=== PATIENT | female | born 1980 | race Two or more races ===

== ENCOUNTER → 2024-05-23 | Outpatient (CLI) | payer MEDICAID, SELFPAY ==
--- NOTE | 2024-05-23 14:00 | XR_ITS ---
Examination: Breast ultrasound, unilateral, right Date and time of exam: May 23, 2024 1434 hours INDICATIONS: Mammogram 11/04/2023 focal asymmetry 11 to 12:00 position right breast anterior depth Technique: Real-time andersen scale ultrasonographic imaging performed right breast including all 4 quadrants as well as nipple retroareolar and axillary region. Findings: 12:00 cyst 8 x 19 mm 12:00 cyst 5 x 6 mm 10:00 cyst 6 x 4 mm No solid nodules IMPRESSION: BI-RADS Category 2: Benign findings
--- NOTE | 2024-05-23 14:30 | XR_ITS ---
Examination: Diagnostic digital mammography, unilateral, right Computer aided detection 3-D breast Tomosynthesis, unilateral Date and time of exam: May 23, 2024 1457 hours INDICATIONS: Mammogram 11/04/2023 focal asymmetry 11 to 12:00 position right breast anterior depth Technique: Nonmagnified MLO, CC views of the right breast have been obtained, reconstructed from 3-D Tomosynthesis images. R2 computer aided detection program utilized for evaluation of suspicious masses and/or abnormal calcifications. 3-D Tomosynthesis images obtained. Findings: The breast is heterogeneously dense, which may obscure small masses Focal asymmetry remains upper right breast on the spot compression MLO view Impression: BI-RADS category 3: Probably benign findings One additional 6 month right mammogram follow-up is needed
== END | disposition home or self-care (01) ==
PROVIDERS: Referring Provider Physician Assistant; Visit Provider Physician Assistant
DX: R92.331 Mammographic heterogeneous density, right breast (principal); N60.01 Solitary cyst of right breast
CPT/HCPCS: 76641; 77061; 77065; G0279

== ENCOUNTER 2024-06-07 13:08 | Outpatient (AMB) | payer MEDICAID, SELFPAY ==
[2024-06-07 13:27] VITALS: BP 101/67; PULSE 68; RESP 19; TEMP 36.7; O2SAT 98; BMI 30.1
--- NOTE | 2024-06-07 13:27 | ORTHONT_ITS ---
Vital signs 06/07/24 13:27 Height 1.52 m Height Method Measured Weight 69.626 kg Weight Measurement Method Standing Scale BMI 30.1 BP 101/67 Blood Pressure Source Automatic Cuff Blood Pressure Location Left Upper Arm Position Sitting Respiration 19 Pulse 68 Pulse Source Monitor Temp 98.1 F Temp Source Temporal Artery Scan Pulse Oximetry (%) 98 Oxygen Delivery Method Room Air Med/Allergies Allergies & Medications Allergies No Known Allergies Allergy (Verified 06/07/24 13:28) Medication Reconciliation ergocalciferol (vitamin D2) 1,250 mcg (50,000 unit) capsule (Vitamin D2) 1,250 mcg PO QWEEK 06/07/24 [History Confirmed 06/07/24] naproxen 375 mg tablet 375 mg PO BID PRN 06/07/24 [History Confirmed 06/07/24] Exam Exam Patient is in no acute distress and is cooperative with the examination today. Breathing is nonlabored. In no respiratory distress. Patient has no paraspinal tenderness. Spinal deformity cannot be appreciated. The gait of the patient is nonantalgic Bilateral extremities were evaluated and demonstrates sensation intact to light touch. Palpable pedal pulses are present. No significant edema is present. Bilateral knees were examined and the patient has full strength and range of motion.. The left hip was examined. Patient was able to flex to 90 degrees, adduct to 30 degrees, abduct to 40 degrees, internally rotate to 20 degrees, and externally rotate to 20 degrees. Patient has a negative logroll. Stinchfield is negative. The patient is nontender diffusely to touch. The right hip was examined. Patient was able to flex to 90 degrees, adduct to 30 degrees, abduct to 40 degrees, internally rotate to 15 degrees, and externally rotate to 20 degrees. Patient has a positive logroll X-rays of the right hip are reviewed. This demonstrates complete obliteration of the superior joint space with sclerosis of the femoral head consistent with avascular porosis Assessment and Plan Problem List (1) Avascular necrosis of bone of right hip: Status: Acute Plan: Patient is a 43-year-old female with excruciating right hip pain. She has significant degenerative changes on x-ray and I do think she has avascular necrosis. We will get an MRI to confirm the diagnosis. We discussed different treatment options and she has tried ibuprofen and naproxen. We will likely discuss surgery as a possible treatment choice. 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 Level 3 ([id number]) [place] Intake Visit Data Collection New Patient or Established: Established Patient (seen at [facility] within 3 years) Reason for Visit:: RIGHT HIP PAIN Development Writer Required: Yes Development Writer's name/title: CARLOZ SCRUGGS MA Do You Feel Safe at Home: Yes Questionairres Past Medical History Past Medical History Have you ever been diagnosed with any of the following: Neurological Problems Seizures: No Cardiology Problems Congestive Heart Failure: No Respiratory Problems Chronic Obstructive Pulmonary Disease (COPD): No Genital/Urinary Problems Renal Disease: No Reproductive Problems Endometriosis: Yes Pelvic Inflammatory Disease: Yes Previous Pregnancies: Yes Endocrine Problems Diabetes Mellitus Type 1: No Diabetes Mellitus Type 2: No Other Problems Blood Transfusions: No Blood Transfusion Reaction: No Anesthesia Reactions: No MRSA: No VRSA: No Chicken Pox: Yes Measles: Yes Clostridium Difficile: Yes Cancer: No Subjective Visit Visit for: new patient and hip Immunization / Flu Flu Vaccine in the Last 12 Months: Yes Flu Vaccine Exclusion Criteria: Already Received History of Present Illness Chief complaint: RIGHT HIP PAIN Patient is a pleasant 43-year-old female with 12 years of right hip pain. We worsened in the last several years. She reports it is very difficult to put on socks and shoes and the pain is affecting her quality life. She denies any history of alcohol or steroid use in the past. She is very healthy. Personal History Red flag PMH: none BMI Counceling provided: Yes Pain Pain level (0-10): 8 Pain duration: INTERMITTENT Ambulatory data Ambulatory device: none Review of Systems Review of Systems: All systems negative unless otherwise noted in HPI.
--- NOTE | 2024-06-07 13:35 | XR_ITS ---
Examination: Bilateral knees 2 views Technique: Bilateral AP knees 2 views Bilateral knee left lateral knee 2 views Bilateral axial knees single view Technique: Bilateral AP knees standing single view, bilateral PA knees standing flexion Standing right lateral knee left lateral knee 2 views Bilateral axial knees single view total 5 views Exam date and time: June 07, 2024 1350 hrs. Indications: Bilateral knee pain beginning 2 years ago Findings: Mild to moderate narrowing medial joint spaces No fractures or dislocations Mild to moderate narrowing patellofemoral joints Impression: Mild to moderate narrowing medial and patellofemoral joints
--- NOTE | 2024-06-07 13:35 | XR_ITS ---
Examination:Right hip AP, lateral, AP pelvis 3 views Technique: Hip AP lateral, AP pelvis, 3 views Exam date and time:June 07, 2024 1350 hrs. Indications: Right hip pain beginning 2 years ago Findings: Advanced right hip osteoarthritis Focal sclerotic areas and radiolucencies in the right femoral head consistent with avascular necrosis Left hip bones of the pelvis intact Impression: Advanced right hip osteoarthritis Avascular necrosis right femoral head.
== END 2024-06-07 13:38 | disposition home or self-care (01) ==
LOC: HODSRG 13:08
PROVIDERS: PCP Physician Assistant; Referring Provider Physician Assistant; Supervising Provider Orthopaedic Surgery Adult Reconstructive Orthopaedic Surgery; Visit Provider Orthopaedic Surgery Adult Reconstructive Orthopaedic Surgery
DX: M87.88 Other osteonecrosis, other site (principal); M25.551 Pain in right hip; M16.11 Unilateral primary osteoarthritis, right hip; M25.862 Other specified joint disorders, left knee; M25.861 Other specified joint disorders, right knee
CPT/HCPCS: 73502; 73564; 99203; G0463

== ENCOUNTER 2024-06-23 13:58 | Outpatient (AMB) | payer MEDICAID, SELFPAY ==
--- NOTE | 2024-06-23 14:16 | ORTHONT_ITS ---
Vital signs 06/23/24 14:26 Height 1.52 m Height Method Stated Weight 68.577 kg Weight Measurement Method Standing Scale BMI 29.7 BP 98/64 Blood Pressure Source Automatic Cuff Blood Pressure Location Left Upper Arm Position Sitting Respiration 18 Pulse 63 Pulse Source Monitor Temp 97.6 F Temp Source Temporal Artery Scan Pulse Oximetry (%) 98 Oxygen Delivery Method Room Air Med/Allergies Allergies & Medications Allergies No Known Allergies Allergy (Verified 06/23/24 14:27) Medication Reconciliation ergocalciferol (vitamin D2) 1,250 mcg (50,000 unit) capsule (Vitamin D2) 1,250 mcg PO QWEEK 06/07/24 [History Confirmed 06/23/24] naproxen 375 mg tablet 375 mg PO BID PRN 06/07/24 [History Confirmed 06/23/24] Exam Exam Patient is in no acute distress and is cooperative with the examination today. Breathing is nonlabored. In no respiratory distress. Patient has no paraspinal tenderness. Spinal deformity cannot be appreciated. The gait of the patient is nonantalgic Bilateral extremities were evaluated and demonstrates sensation intact to light touch. Palpable pedal pulses are present. No significant edema is present. Bilateral knees were examined and the patient has full strength and range of motion.. The left hip was examined. Patient was able to flex to 90 degrees, adduct to 30 degrees, abduct to 40 degrees, internally rotate to 20 degrees, and externally rotate to 20 degrees. Patient has a negative logroll. Stinchfield is negative. The patient is nontender diffusely to touch. The right hip was examined. Patient was able to flex to 90 degrees, adduct to 30 degrees, abduct to 40 degrees, internally rotate to 15 degrees, and externally rotate to 20 degrees. Patient has a positive logroll X-rays of the right hip are reviewed. This demonstrates complete obliteration of the superior joint space with sclerosis of the femoral head consistent with avascular necrosis. Assessment and Plan Problem List (1) Avascular necrosis of bone of right hip: Status: Acute Plan: Patient is a 43-year-old female with excruciating right hip pain and severe avascular necrosis. She has significant degenerative changes on x-ray as well. She has failed conservative treatment and has actually tried significant things already including NSAIDs. We did discuss that she is on the younger side for a total hip replacement and that there is a risk for revision in the future. The nature and purpose of the total hip replacement, alternative method(s) of treatment, the material risks involved, and the possibility of complications were fully explained to the patient. The patient does NOT have any of the following contraindications to [place]: - Active infection of the hip joint, OR - Active systemic bacteremia, OR - Active skin infection or open wound at surgical site, OR - Neuropathic arthritis, OR - Severe, rapidly progressive neurological disease, OR - Severe medical condition that makes risks of the surgery outweigh the potential benefit The patient was told the most common risks and complications associated with a total hip replacement include, but are not limited to: blood clots in the leg, fatal pulmonary embolism, dislocation of the prosthesis, intraoperative and postoperative fractures of the femur or acetabulum, infection, failure of the prosthesis or grafting materials, complications from anesthesia, reactions to blood transfusions, postoperative leg length inequality, instability of the hip replacement, nerve damage or injury, vascular injury, delayed wound healing, infection, other injury or even . In addition, there are risks associated with anesthesia given during this operation. Also, the patient was told that after undergoing a total hip replacement there may still be persistent pain or disability. The patient was informed that the success of this operation in part depends upon the mechanical devices which are going to be implanted and that these devices can fail or malfunction, and may need to be repaired or replaced and there are no guarantees as to the longevity of this device or its parts and that it or its parts could fail prematurely. The patient was also notified that during the course of surgery, there may be a need to use bone graft from donors, and that any bone graft used will be carefully screened for communicable diseases, including AIDS, hepatitis, Demetrio-Creutzfeldt, or other diseases, but despite the screening procedures, there is a small chance that they could contract one of these diseases. Finally, the patient was asked to follow completely and fully with all advice and recommended treatments, and that recovery and ultimate outcome are affected by their compliance with recommended treatment. We discussed the risks, benefits and treatment alternatives, and the patient is interested in proceeding with surgery. We will try to set this up as expeditiously as possible. Office Procedures GNS Level of Care Nursing/Assessment Patient Status: Established Patient Nursing Assessment/Reassesment: Medication Reconciliation, Update PMH in EMR and Vital Signs Coordination of Care: Complex Care and Chronic Disease 1-5, Education Complex Pt/Fam, Consent,records obtained, informed consent, Results/Orders obtained and Staff clarify orders Special Needs: Language special needs Established Patient Charge Established Patient Point Assignment: 95 Established Patient Point Charge: EP Level 3 (80-115) MA Intake Visit Data Collection New Patient or Established: Established Patient (seen at [facility] within 3 years) Reason for Visit:: RIGHT HIP PAIN REQ SX Centrifugal Operator Required: Yes Centrifugal Operator's name/title: CARLOZ SCRUGGS MA PCP or OBGYN visit in last 3 months: Yes Hx Now: No Do You Feel Safe at Home: Yes Authorities Contacted: N/A Questionairres Past Medical History Past Medical History Have you ever been diagnosed with any of the following: Neurological Problems Seizures: No Cardiology Problems Congestive Heart Failure: No Respiratory Problems Chronic Obstructive Pulmonary Disease (COPD): No Smoking: No Smoking Exposure: No Genital/Urinary Problems Renal Disease: No Reproductive Problems Endometriosis: Yes Pelvic Inflammatory Disease: Yes Previous Pregnancies: Yes Endocrine Problems Diabetes Mellitus Type 1: No Diabetes Mellitus Type 2: No Other Problems Blood Transfusions: No Blood Transfusion Reaction: No Anesthesia Reactions: No MRSA: No VRSA: No Chicken Pox: Yes Measles: Yes Clostridium Difficile: Yes Cancer: No Subjective Visit Visit for: follow up visit, hip and x-rays Immunization / Flu Flu Vaccine in the Last 12 Months: Yes Flu Vaccine Exclusion Criteria: Already Received History of Present Illness Chief complaint: RIGHT HIP PAIN Patient is a pleasant 43-year-old female with 12 years of right hip pain. We worsened in the last several years. She reports it is very difficult to put on socks and shoes and the pain is affecting her quality life. She denies any history of alcohol or steroid use in the past. She is very healthy. She has not tried antiinflammatories. Personal History Red flag PMH: none BMI Counceling provided: Yes Pain Pain level (0-10): 8 Pain duration: CONSTANT Pain location: groin, inside (medial), outside (lateral) and anterior Pain quality: sharp, dull and aching Pain timing: night, increases with activity and stairs Associated signs & symptoms: numbness, weakness and stiffness Ambulatory data Ambulatory device: none Treatments Improvement with previous injections: No Improvement with PT: No Improvement with NSAIDS: no Review of Systems Review of Systems: All systems negative unless otherwise noted in HPI.
[2024-06-23 14:26] VITALS: BP 98/64; PULSE 63; RESP 18; TEMP 36.4; O2SAT 98; BMI 29.7
== END 2024-06-23 14:29 | disposition home or self-care (01) ==
LOC: HODSRG 13:58
PROVIDERS: PCP Physician Assistant; Referring Provider Physician Assistant; Supervising Provider Orthopaedic Surgery Adult Reconstructive Orthopaedic Surgery; Visit Provider Orthopaedic Surgery Adult Reconstructive Orthopaedic Surgery
DX: M87.88 Other osteonecrosis, other site (principal); M25.551 Pain in right hip
CPT/HCPCS: 99213; G0463

== ENCOUNTER 2024-07-21 09:32 | Outpatient (AMB) | payer MEDICAID, SELFPAY ==
--- NOTE | 2024-07-21 10:17 | PD.ORTHCLVIS ---
Med/Allergies Allergies & Medications Allergies No Known Allergies Allergy (Verified 06/23/24 14:27) Exam Exam Patient is in no acute distress and is cooperative with the examination today. Breathing is nonlabored. In no respiratory distress. Patient has no paraspinal tenderness. Spinal deformity cannot be appreciated. The gait of the patient is nonantalgic Bilateral extremities were evaluated and demonstrates sensation intact to light touch. Palpable pedal pulses are present. No significant edema is present. Bilateral knees were examined and the patient has full strength and range of motion.. The left hip was examined. Patient was able to flex to 90 degrees, adduct to 30 degrees, abduct to 40 degrees, internally rotate to 20 degrees, and externally rotate to 20 degrees. Patient has a negative logroll. Stinchfield is negative. The patient is nontender diffusely to touch. The right hip was examined. Patient was able to flex to 90 degrees, adduct to 30 degrees, abduct to 40 degrees, internally rotate to 15 degrees, and externally rotate to 20 degrees. Patient has a positive logroll X-rays of the right hip are reviewed. This demonstrates complete obliteration of the superior joint space with sclerosis of the femoral head consistent with avascular necrosis. Assessment and Plan Problem List (1) Avascular necrosis of bone of right hip: Status: Acute Plan: Patient is a 43-year-old female with excruciating right hip pain and severe avascular necrosis. She has significant degenerative changes on x-ray as well. She has failed conservative treatment and has actually tried significant things already including NSAIDs. We did discuss that she is on the younger side for a total hip replacement and that there is a risk for revision in the future. The nature and purpose of the total hip replacement, alternative method(s) of treatment, the material risks involved, and the possibility of complications were fully explained to the patient. The patient does NOT have any of the following contraindications to [place]: - Active infection of the hip joint, OR - Active systemic bacteremia, OR - Active skin infection or open wound at surgical site, OR - Neuropathic arthritis, OR - Severe, rapidly progressive neurological disease, OR - Severe medical condition that makes risks of the surgery outweigh the potential benefit The patient was told the most common risks and complications associated with a total hip replacement include, but are not limited to: blood clots in the leg, fatal pulmonary embolism, dislocation of the prosthesis, intraoperative and postoperative fractures of the femur or acetabulum, infection, failure of the prosthesis or grafting materials, complications from anesthesia, reactions to blood transfusions, postoperative leg length inequality, instability of the hip replacement, nerve damage or injury, vascular injury, delayed wound healing, infection, other injury or even . In addition, there are risks associated with anesthesia given during this operation. Also, the patient was told that after undergoing a total hip replacement there may still be persistent pain or disability. The patient was informed that the success of this operation in part depends upon the mechanical devices which are going to be implanted and that these devices can fail or malfunction, and may need to be repaired or replaced and there are no guarantees as to the longevity of this device or its parts and that it or its parts could fail prematurely. The patient was also notified that during the course of surgery, there may be a need to use bone graft from donors, and that any bone graft used will be carefully screened for communicable diseases, including AIDS, hepatitis, Demetrio-Creutzfeldt, or other diseases, but despite the screening procedures, there is a small chance that they could contract one of these diseases. Finally, the patient was asked to follow completely and fully with all advice and recommended treatments, and that recovery and ultimate outcome are affected by their compliance with recommended treatment. We discussed the risks, benefits and treatment alternatives, and the patient is interested in proceeding with surgery. We will try to set this up as expeditiously as possible. Questionairres Past Medical History Past Medical History Have you ever been diagnosed with any of the following: Neurological Problems Seizures: No Cardiology Problems Congestive Heart Failure: No Respiratory Problems Chronic Obstructive Pulmonary Disease (COPD): No Smoking: No Smoking Exposure: No Genital/Urinary Problems Renal Disease: No Reproductive Problems Endometriosis: Yes Pelvic Inflammatory Disease: Yes Previous Pregnancies: Yes Endocrine Problems Diabetes Mellitus Type 1: No Diabetes Mellitus Type 2: No Other Problems Blood Transfusions: No Blood Transfusion Reaction: No Anesthesia Reactions: No MRSA: No VRSA: No Chicken Pox: Yes Measles: Yes Clostridium Difficile: Yes Cancer: No Subjective Visit Visit for: follow up visit, hip and x-rays Immunization / Flu Flu Vaccine in the Last 12 Months: Yes Flu Vaccine Exclusion Criteria: Already Received History of Present Illness Chief complaint: RIGHT HIP PAIN Patient is a pleasant 43-year-old female with 12 years of right hip pain. We worsened in the last several years. She reports it is very difficult to put on socks and shoes and the pain is affecting her quality life. She denies any history of alcohol or steroid use in the past. She is very healthy. She has not tried antiinflammatories. Personal History Red flag PMH: none BMI Counceling provided: Yes Pain Pain level (0-10): 8 Pain duration: CONSTANT Pain location: groin, inside (medial), outside (lateral) and anterior Pain quality: sharp, dull and aching Pain timing: night, increases with activity and stairs Associated signs & symptoms: numbness, weakness and stiffness Ambulatory data Ambulatory device: none Treatments Improvement with previous injections: No Improvement with PT: No Improvement with NSAIDS: no Review of Systems Review of Systems: All systems negative unless otherwise noted in HPI.
== END 2024-07-21 10:16 | disposition home or self-care (01) ==
LOC: HODSRG 09:32
PROVIDERS: PCP Physician Assistant; Referring Provider Physician Assistant; Supervising Provider Orthopaedic Surgery Adult Reconstructive Orthopaedic Surgery; Visit Provider Orthopaedic Surgery Adult Reconstructive Orthopaedic Surgery
DX: M87.88 Other osteonecrosis, other site (principal); M25.551 Pain in right hip
CPT/HCPCS: 99213; G0463

== ENCOUNTER → 2024-07-28 | Outpatient (CLI) | payer MEDICAID, SELFPAY ==
--- NOTE | 2024-07-28 07:30 | XR_ITS ---
Examination: MRI right hip without intravenous contrast. Date and time of exam: July 28, 2024 0803 hours Comparison January 06, 2024 Technique: Multiple MRI images of the right hip have been obtained T1 weighted coronal sections, TR 500, TE 12 Proton density coronal fat saturated images, TR 3000, TE 71 T2-weighted coronal images, 5850, TE 104 T1-weighted axial images, TR 521, TE 12 T2-weighted axial fat suppressed images, TR 5730, TE 103. Findings: Advanced right hip osteoarthritis, narrowing of the joint and subarticular cyst formation Extensive avascular necrosis right femoral head, occupying more than 50% of the articulating surface Bones of the pelvis intact 25 mm left ovarian cyst No free fluid in the pelvis IMPRESSION: Advanced right hip osteoarthritis Significant avascular necrosis right femoral head Recommend pelvic sonography to assess 25 mm left ovarian cyst
== END | disposition home or self-care (01) ==
LOC: SMRI 07:13
PROVIDERS: PCP Physician Assistant; Referring Provider Orthopaedic Surgery Adult Reconstructive Orthopaedic Surgery; Visit Provider Orthopaedic Surgery Adult Reconstructive Orthopaedic Surgery
DX: M16.11 Unilateral primary osteoarthritis, right hip (principal); M87.851 Other osteonecrosis, right femur; N83.202 Unspecified ovarian cyst, left side
CPT/HCPCS: 73721

== ENCOUNTER → 2024-08-10 | Outpatient (CLI) | payer MEDICAID, SELFPAY ==
--- NOTE | 2024-08-10 17:00 | XR_ITS ---
Examination: CT bilateral lower extremities, without contrast. 2-D sagittal reconstructions. 2-D coronal reconstructions. 3-D reconstructions. Date and time of exam:August 10, 2024, 1701 hours INDICATIONS: Right hip pain 10 years, diagnosis aseptic necrosis right femur CTDI: vol (mGy):10.7 DLP: (mGycm):578 Technique: Multiple 1.25 mm axial sections of the bilateral lower extremities without intravenous contrast have been obtained. 2-D sagittal and coronal reconstructions have been obtained. 3-D reconstructions have been obtained. Low dose protocols were performed. One or more of the following dose reduction techniques were used; automated exposure control, adjustment of the mA and/or KV according to patient size, use of iterative reconstruction technique. Findings: Advanced right hip osteoarthritis Sclerosis and radiolucencies in the right femoral head [id number]-[id number] narrowing left hip joint Moderate narrowing medial joint space right knee [id number] narrowing medial joint space left knee IMPRESSION: Advanced right hip osteoarthritis Avascular necrosis right femoral head occupying more than 50% of the articulating surface of the femoral head, axial image 132
== END | disposition home or self-care (01) ==
LOC: CCTX 16:47
PROVIDERS: PCP Physician Assistant; Referring Provider Orthopaedic Surgery Adult Reconstructive Orthopaedic Surgery; Visit Provider Orthopaedic Surgery Adult Reconstructive Orthopaedic Surgery
DX: M16.11 Unilateral primary osteoarthritis, right hip (principal); M87.051 Idiopathic aseptic necrosis of right femur
CPT/HCPCS: 72192; 73700

== ENCOUNTER 2024-08-17 05:30 | Day surgery (SDC) | payer MEDICAID, SELFPAY ==
[2024-08-15 08:31] VITALS: BMI 30.5
[2024-08-15 10:51] LABS: Basophils % (Auto) 1 % (0-2.5); Eosinophils # (Auto) 0.1 Thou/mm3 (0.0-0.5); Eosinophils % (Auto) 2 % (0-10); Hematocrit 37.1 % (36.0-46.0); Hemoglobin 12.1 g/dL (12.0-16.0); Immature Granulocytes % (Auto) 0 % (0-0); Immature Granulocytes Auto 0.01 Thou/mm3 (0.00-0.00); Lymphocytes # (Auto) 1.4 Thou/mm3 (1.0-4.8); Lymphocytes % (Auto) 30 % (10-50); Mean Corpuscular HGB Conc 32.6 g/dl (31.0-37.0); Mean Corpuscular Hemoglobin 27.6 pg (25.0-35.0); Mean Corpuscular Volume 85 fL (80-100); Monocytes # (Auto) 0.4 Thou/mm3 (0.0-0.8); Monocytes % (Auto) 8 % (0-12); Neutrophils # (Auto) 2.8 Thou/mm3 (1.8-7.7); Neutrophils % (Auto) 59 % (37-80); Nucleated Red Blood Cell % 0 /100 WBC (0); Platelet Count 289 Thou/mm3 (140-440); RDW Standard Deviation 39.9 fL (36.4-46.3); Red Blood Count 4.39 Miln/mm3 (4.00-5.20); White Blood Count 4.6 Thou/mm3 (3.6-11.0)
[2024-08-15 10:58] LABS: Partial Thromboplastin Time 27.6 Seconds (22.0-36.0); Prothrombin Time 11.4 Seconds (9.0-12.2)
[2024-08-15 11:06] LABS: HCG Qualitative,Urine Negative
[2024-08-15 11:14] LABS: Anion Gap 11 (7-16); BUN/Creatinine Ratio 18 Ratio (12-20); Blood Urea Nitrogen 11 mg/dL (9-23); Calcium 9.3 mg/dL (8.3-10.6); Carbon Dioxide 24.8 mMol/L (20.0-31.0); Chloride 106 mMol/L (98-107); Creatinine (Component) 0.6 mg/dL (0.6-1.3); Estimated Creatinine Clearance 102.9 mL/min (>60); Glucose 95 mg/dL (74-106); Osmolality,Calculated 282 (275-295); Potassium 4.1 mMol/L (3.4-5.1); Sodium 142 mMol/L (136-145); eGFR > 60 See Note
[2024-08-17] VITALS (25 sets, daily range): BP systolic 91–110; BP diastolic 50–71; PULSE 54–77; RESP 13–20; TEMP 36.2–37; O2SAT 96–100; BMI 30.7; BMI 11.0
[2024-08-17] MEDS: RINGERS LACTATED 1000 ML 1,000 ML 20 ML IV (06:35)
[2024-08-17] MEDS: ACETAMINOPHEN 325 MG TABLET 650 MG PO (06:35)
[2024-08-17] MEDS: PREGABALIN 75 MG CAPSULE PO (06:36)
[2024-08-17] MEDS: MELOXICAM 7.5 MG TABLET PO (06:36)
--- NOTE | 2024-08-17 07:00 | XR_ITS ---
Examination: Right hip 4 views Fluoroscopy Date and time: August 17, 2024 0921 hours INDICATIONS: Total right hip arthroplasty today TECHNIQUE AND FINDINGS: 4 spot fluoroscopic films right hip Total right hip arthroplasty. Satisfactory alignment Fluoroscopy 15.5 seconds radiation dose 0.885 milligray IMPRESSION: Total right hip arthroplasty with satisfactory alignment
--- NOTE | 2024-08-17 07:15 | CHAP ---
Prayed with patient before the procedure.
--- NOTE | 2024-08-17 10:16 | PD.SUROPNT ---
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 year-old female with a long standing history of left hip pain. After considering the patient's condition and the impact of their hip on the patient's quality of life and activities of daily living, total hip replacement was offered as a reasonable option. Prior to the surgery I discussed the nature of the total hip replacement surgery including alternatives to surgery and the purpose of, and indications for proceeding with surgery. I discussed that this is an elective operation and that the patient should carefully weigh their options before proceeding with surgery. I discussed that this surgery is a shared decision between the patient and the surgeon. Risks and benefits and alternatives of the procedure have been explained to the patient and their family. Anesthesia complications and risks include but are not limited to stroke, heart attack, and . The surgical risks include but are not limited to infection, instability/dislocation, bleeding, nerve and blood vessel injury, deep vein thrombosis, pulmonary embolus, stiffness, pain, scar, need for reoperation, leg length discrepancy, thigh numbness, weakness, and mechanical failure of the implant including loosening, metal complications, metal allergy, wear or breakage. I discussed the expected recovery from surgery and the importance of compliance with all our pre and post-operative recommendations in order to maximize the recovery. The patient understands the risks of loss of life, loss of limb and, loss of function and wishes to proceed. A signed and witnessed consent was obtained and placed in the chart. Procedure in Detail: The patient was identified in the preoperative area. A signed and witness consent was confirmed in the chart. The surgery team confirmed with the patient the operative plan and surgical site. The surgical site was confirmed by the patient and marked by the surgical team. The patient was given the opportunity to ask any further questions and all questions were answered. The patient was brought to the operating room where anesthesia was induced by the anesthesia team without incident. The patient was placed in the supine position on a HANA table with the feet well padded in the boots. All extremities were padded to ensure adequate protection. A timeout was performed prior to the procedure which verified the correct patient, positioning, operation to be performed, operative site, antibiotics, allergies, imaging, and any other concerns. All parties were in agreement. The operative site was cleaned and draped in the usual sterile fashion. A final timeout was performed with all parties in agreement. We first started by making a small incision superior to the ASIS ensuring to be on the table of the pelvis. We ensured that we were 2 fingerbreadths above the ASIS and hip. We placed 3 pins through a small incision and ensured that we were in the table. The pins were driven approximately 3 to 4 cm. The arrays were then placed on the contralateral side to face the camera. A anterior approach to the hip was utilized for the operative side. A 11cm skin incision was made just distal and lateral to the ASIS. This was taken down through skin and subcutaneous tissue using a 10 blade. Bleeding was controlled using electrocautery. The fascia was identified and split in line with the its fibers. The plane medial to the TFL was developed. Next the lateral femoral circumflex vessel was cauterized. The capsule over the femoral neck was exposed and a T shaped capsulotomy performed. The two leaflets were tagged. A femoral neck osteotomy was then performed and the head removed using the marker tool to aid in determining the appropriate neck length. The acetabular bone was then mapped.Acetabular retractors were placed and the cupped was reamed using the robot for alignment. We reamed line to line and good bleeding bone was obtained. We then placed a press fit triathlon cup getting proper version and inclination off of c-arm imaging. There was good press fit. The anterior rim of the cup well covered. One placed and confirmed below the rim of the inner cup followed by the liner which was confirmed fully seated circumferentially. Half of the joint injection was placed inferior and anterior to the acetabulum. Peripheral osteophytes were removed. Next the femur was exposed using the table and femoral elevator for assistance. For this case a capsular release was performed leaving the piriformis and rest of short external rotators intact. The canal was broached up until we obtained excellent axial and rotational stability and the hip was reduced. Fluoro was used to supervisor trust accounts limb length, offset, and stem size as well as the calibrations from the robot. Stability was assessed by externally rotating the foot to 90 deg and then extending the hip 30 degrees. There was no subluxation of the femoral head in that position. The hip was dislocated. The stem position and depth was adjusted as needed per the fluoro shot. The neck was planed to the level of the broach using the calcar planar and then the stem removed. The canal was irrigated and the calcar inspected. There was no evidence of fracture and the bone bed was in good condition. The real stem was inserted and then impacted to the prior level of the broach with good solid fit. The calcar was again inspected and in good condition. The real head was impacted onto a clean taper and the hip reduced again. C-arm confirmed reduction and no evidence of complication. The wound was irrigated with dilute betadine followed by saline lavage. Hemostasis was obtained and noted through all layers. The remained of the joint cocktail was injected avoiding posterior by the nerve. We ensured that all the pins were removed from the pelvis including any checkpoints. The capsule was repaired with 0-vlock. The fascia closed with #2 Quill. The subcutaneous tissues closed with 2-0 vlock followed by 3-0 monocryl, dermabond, and prineo The drapes were then taken down and the patient moved to the [facility]. Leg lengths were confirmed to be appropriate and the patient's lower extremities were warm and well perfused with brisk capillary refill and palpable pulses. The patient was then awoken, transferred to the [facility] and taken to the PACU in stable condition. They tolerated the procedure well. The patient's family/caregiviers were made aware of their condition. Final sponge and needle counts were correct x2. Implants: Dulce pinnacle cup size 48, 1 screws 36-5 ceramic head, insignia size 2 standard offset Anesthesia spinal Implants dulce Pathology / specimen None Pathology comment: none Estimated Blood Loss 150 Condition Stable Disposition same day Surgeon Juan R Ruiz MD Surgical Staff Operation Date: 08/17/24 07:30 Case Staff [employer] DERRICK WORKER: Timmy Naylor RNtelecom manager: Scarlett Warren
--- NOTE | 2024-08-17 10:18 | XR_ITS ---
Examination:Right hip AP, lateral, AP pelvis 3 views Technique: Hip AP lateral, AP pelvis, 3 views Exam date and time:August 17, 2024 1105 hours INDICATIONS: Post right hip arthroplasty today. FINDINGS: Total right hip arthroplasty. Satisfactory alignment. Left hip bones of the pelvis intact IMPRESSION: Total right hip arthroplasty with satisfactory alignment.
--- NOTE | 2024-08-17 10:43 | SUR.PHASEI ---
1043 Patient arrived to recovery resting comfortably in [facility], sleeping comfortably-able to arouse and then drifts back to sleep, breathing unlabored, vital signs stable, denies pain, dressing intact to right/left hip; prineo, kwaku, abd, medpore tape, no bleeding noted, bilateral dorsalis pedis pulses present when palpated, post spinal anesthesia assessment via ice; patient has dermatome sensation at [id number] will monitor, patient has good circulation to bilateral lower extremities; skin color normal for patient and warm to touch, report received from Julisa CHRISTINE and Timmy MAK/ Timmy VALENZUELA.
--- NOTE | 2024-08-17 11:10 | SUR.PHASEI ---
1110 Timmy made aware of patient eyes twitching when she awake, he stated that was normal from the Ketamine medication given during anesthesia
--- NOTE | 2024-08-17 11:18 | SUR.PHASEI ---
1118 XRAY complete per MD order
--- NOTE | 2024-08-17 11:20 | SUR.PHASEI ---
1120 Patient taking bits of ice chips; tolerated well, awake for a short time then falls back asleep quickly
--- NOTE | 2024-08-17 11:38 | SUR.PHASEI ---
patient continues to sleep, notified patient , patient doing well and sleeping, stated he was going home and that he would like a phone call when she is almost ready
--- NOTE | 2024-08-17 11:50 | SUR.PHASEII ---
1150 Timmy MAK made aware, patient level of sleepiness, patient will awake for a short time, had to keep conversation as patient is very drowsy, no new orders will continue to monitor patient
--- NOTE | 2024-08-17 12:36 | SUR.PHASEII ---
pt lying in gurney with eyes closed, pt very sleepy- responds to voice with eyes closed and immediately returns to sleep, dressing to bilateral hips clean, dry, and intact, report from Melanie Mayorga RN
--- NOTE | 2024-08-17 12:36 | SUR.PHASEII ---
1236 Report given to Melanie Persaud RN
--- NOTE | 2024-08-17 13:13 | SUR.PHASEII ---
pt lying in [facility] with eyes closed, breathing unlabored, VS stable, dressing to bilateral hips clean, dry, and intact, report to Melanie Mayorga RN
--- NOTE | 2024-08-17 13:13 | SUR.PHASEII ---
1313 Report received from Melanie Persaud RN
--- NOTE | 2024-08-17 13:15 | SUR.PHASEII ---
1315 patients post spinal anesthesia assessment complete, patient has dermatome sensation at S2
--- NOTE | 2024-08-17 13:35 | SUR.PHASEII ---
1335 Patients at bedside with patient
--- NOTE | 2024-08-17 13:56 | SUR.PHASEII ---
1356 notified Timmy MAK of patient pain level and patient is still sleepy, telephone order read-back received from Ofirmev 1gm IV and Toradol 30mg via IVP for pain, will enter order into EMR and administer pain medication per anesthesia order
[2024-08-17] MEDS: KETOROLAC INJ 30 MG/ML VIAL IVP (14:19)
[2024-08-17] MEDS: ACETAMINOPHEN IVPB 1,000 MG/100 ML VIAL 250 MG IV (14:23)
--- NOTE | 2024-08-17 14:33 | SUR.PHASEII ---
1433 Dr. Ruiz at bedside assessing patient, verbal order read-back received from Oxycodone IR 5mg oral tab for pain, will place order in EMR and administer per MD order
--- NOTE | 2024-08-17 14:42 | SUR.PHASEII ---
5139 Patient ate a jello, tolerating well
[2024-08-17] MEDS: oxyCODONE HCL 5 MG IR TAB PO (14:55)
--- NOTE | 2024-08-17 16:05 | SUR.PHASEII ---
1540 Patient sleeping comfortably in [facility], denies pain 1558 Patient attempting to work with physical therapy, patient closing her eyes, stating she dizzy and stated she unable to walk because her pain is 12/09 1605 Patient back in [facility], resting with her eye closed denies pain
--- NOTE | 2024-08-17 16:30 | SUR.PHASEII ---
1630 patient voided in the restroom and had a bowel movement
--- NOTE | 2024-08-17 16:59 | SUR.PHASEII ---
1659 Patient cleared by physical therapist Dale to proceed with discharge
--- NOTE | 2024-08-17 18:35 | SUR.PHASEII ---
1835 Patient meets discharge criteria from recovery, awake and alert, breathing unlabored, vital signs stable, denies pain, dressing intact; no blessing intact; no bleeding noted, patient drinking fluids; tolerating well; denies nausea, patient voided in the restroom and had a bowel movement prior to discharge, discharge instructions given to patient and patients with the assistance of the telephone inspector penetrant Irene ID#[id number], patient signed discharge instructions. Patient given all her belongings prior to discharge, transported via wheelchair and left in a private vehicle.
== END 2024-08-17 18:35 | disposition home or self-care (01) ==
PROVIDERS: Anesthesiology; PCP Physician Assistant; Referring Provider Orthopaedic Surgery Adult Reconstructive Orthopaedic Surgery; Visit Provider Orthopaedic Surgery Adult Reconstructive Orthopaedic Surgery
PROC: (CPT 27130; principal; 2024-08-17 07:30)
DX: M87.051 Idiopathic aseptic necrosis of right femur (principal)
CPT/HCPCS: 27130; 36415; 73502; 76000; 80048; 81025; 85025; 85610; 85730; 97163; A4217; A4314; A4649; C1713; C1776; J0131; J0690; J1200; J1885; J2250; J2371; J2405; J2704; J3010; J3490; J7120; J7999; A4648; A9270

== ENCOUNTER 2024-08-31 13:37 | Outpatient (AMB) | payer MEDICAID, SELFPAY ==
--- NOTE | 2024-08-31 13:50 | PD.ORTHCLVIS ---
Med/Allergies Allergies & Medications Allergies No Known Allergies Allergy (Verified 08/17/24 10:15) Exam Exam Patient is in no acute distress and is cooperative with the examination today. Breathing is nonlabored. In no respiratory distress. Patient has no paraspinal tenderness. Spinal deformity cannot be appreciated. The gait of the patient is nonantalgic Bilateral extremities were evaluated and demonstrates sensation intact to light touch. Palpable pedal pulses are present. No significant edema is present. Bilateral knees were examined and the patient has full strength and range of motion.. The left hip was examined. Patient was able to flex to 90 degrees, adduct to 30 degrees, abduct to 40 degrees, internally rotate to 20 degrees, and externally rotate to 20 degrees. Patient has a negative logroll. Stinchfield is negative. The patient is nontender diffusely to touch. R hip incision is c/d/i. Leg lengths are equal Assessment and Plan Problem List (1) Avascular necrosis of bone of right hip: Status: Acute Plan: Patient is a 43-year-old female with excruciating right hip pain and severe avascular necrosis s/p R [place]. She is doing well. She is doing home pt currently Questionairres Past Medical History Past Medical History Have you ever been diagnosed with any of the following: Neurological Problems Seizures: No Cardiology Problems Congestive Heart Failure: No Respiratory Problems Chronic Obstructive Pulmonary Disease (COPD): No Smoking: No Smoking Exposure: No Genital/Urinary Problems Renal Disease: No Reproductive Problems Endometriosis: Yes Pelvic Inflammatory Disease: Yes Previous Pregnancies: Yes Musculoskeletal Problems Arthritis: Yes (RIGHT HIP) Endocrine Problems Diabetes Mellitus Type 1: No Diabetes Mellitus Type 2: No Blood Problems Anemia: Yes (RESOLVED) Other Problems Falls: No Blood Transfusions: No Blood Transfusion Reaction: No Anesthesia Reactions: No MRSA: No VRSA: No Chicken Pox: Yes Measles: Yes Clostridium Difficile: Yes Cancer: No Subjective History of Present Illness Chief complaint: r [place] Patient is doing well s/p R [place]. She reports the pain is controlled. She is happy with her progress Review of Systems Review of Systems: All systems negative unless otherwise noted in HPI.
[2024-08-31 13:54] VITALS: BP 103/65; PULSE 84; RESP 18; TEMP 36.6; O2SAT 98; BMI 30.9
--- NOTE | 2024-08-31 13:54 | PD.ORTHCLVIS ---
Vital signs 08/31/24 13:54 Height 1.5 m Height Method Stated Weight 69.541 kg Weight Measurement Method Standing Scale BMI 30.9 BP 103/65 Blood Pressure Source Automatic Cuff Blood Pressure Location Right Upper Arm Position Sitting Respiration 18 Pulse 84 Pulse Source Monitor Temp 97.8 F Temp Source Temporal Artery Scan Pulse Oximetry (%) 98 Oxygen Delivery Method Room Air Med/Allergies Allergies & Medications Allergies No Known Allergies Allergy (Verified 08/31/24 13:55) Medication Reconciliation naproxen 375 mg tablet 375 mg PO BID PRN pain 06/07/24 [History Confirmed 08/31/24] aspirin 81 mg tablet,delayed release 81 mg PO BID #60 tabs 08/17/24 [Rx Confirmed 08/31/24] doxycycline hyclate 100 mg tablet 100 mg PO BID #14 tabs 08/17/24 [Rx Confirmed 08/31/24] gabapentin 300 mg capsule 300 mg PO .qhs #30 caps 08/17/24 [Rx Confirmed 08/31/24] sennosides 8.6 mg-docusate sodium 50 mg tablet (Senna-S) 1 tab-cap PO QDAY #30 tabs 08/17/24 [Rx Confirmed 08/31/24] pantoprazole 40 mg tablet,delayed release 40 mg PO QDAY #20 tabs 08/20/24 [Rx Confirmed 08/31/24] acetaminophen 500 mg tablet (Acetaminophen Extra Strength) 1,000 mg (2 x 500 mg) PO Q6H PRN pain #90 tabs 08/31/24 [Rx Confirmed 08/31/24] oxycodone 5 mg tablet 5 mg PO Q6H PRN pain #28 tabs 08/31/24 [Rx Confirmed 08/31/24] Assessment and Plan Problem List (1) Avascular necrosis of bone of right hip: Status: Acute Office Procedures GNS Level of Care Nursing/Assessment Patient Status: Established Patient Nursing Assessment/Reassesment: Medication Reconciliation, Update PMH in EMR and Vital Signs Coordination of Care: Complex Care and Chronic Disease 1-5, Education Complex Pt/Fam, Consent,records obtained, informed consent, Results/Orders obtained and Staff clarify orders Special Needs: Language special needs Established Patient Charge Established Patient Point Assignment: 95 Established Patient Point Charge: EP Level 3 (80-115) MA Intake Visit Data Collection New Patient or Established: Established Patient (seen at [facility] within 3 years) Reason for Visit:: 2 WEEK POST OP [place] Seen by Clinical Staff ONLY (RN/MA): No Verbal consent obtained for Telemed visit?: No Grain Elevator Motor Starter Required: Yes PCP or OBGYN visit in last 3 months: Yes Hx Now: No Do You Feel Safe at Home: Yes Authorities Contacted: N/A Questionairres Past Medical History Past Medical History Have you ever been diagnosed with any of the following: Neurological Problems Seizures: No Cardiology Problems Congestive Heart Failure: No Respiratory Problems Chronic Obstructive Pulmonary Disease (COPD): No Smoking: No Smoking Exposure: No Genital/Urinary Problems Renal Disease: No Reproductive Problems Endometriosis: Yes Pelvic Inflammatory Disease: Yes Previous Pregnancies: Yes Musculoskeletal Problems Arthritis: Yes (RIGHT HIP) Endocrine Problems Diabetes Mellitus Type 1: No Diabetes Mellitus Type 2: No Blood Problems Anemia: Yes (RESOLVED) Other Problems Falls: No Blood Transfusions: No Blood Transfusion Reaction: No Anesthesia Reactions: No MRSA: No VRSA: No Chicken Pox: Yes Measles: Yes Clostridium Difficile: Yes Cancer: No Subjective Visit Visit for: follow up visit, post op #1 and hip Immunization / Flu Flu Vaccine in the Last 12 Months: No Flu Vaccine Exclusion Criteria: No Exclusion Criteria History of Present Illness Chief complaint: 2 WEEK POST OP [place] Personal History Occupation: DISABLED Pain Pain quality: tingling Associated signs & symptoms: numbness Ambulatory data Ambulatory device: walker Treatments Improvement with previous injections: No Improvement with PT: No Improvement with NSAIDS: no Review of Systems Review of Systems: All systems negative unless otherwise noted in HPI.
== END 2024-08-31 13:53 | disposition home or self-care (01) ==
LOC: HODSRG 13:37
PROVIDERS: PCP Physician Assistant; Referring Provider Physician Assistant; Supervising Provider Orthopaedic Surgery Adult Reconstructive Orthopaedic Surgery; Visit Provider Orthopaedic Surgery Adult Reconstructive Orthopaedic Surgery
DX: M87.88 Other osteonecrosis, other site (principal); M25.551 Pain in right hip; Z96.641 Presence of right artificial hip joint
CPT/HCPCS: 99213; G0463

== ENCOUNTER 2024-09-29 10:56 | Outpatient (AMB) | payer MEDICAID, SELFPAY ==
[2024-09-29 11:15] VITALS: BP 125/74; PULSE 95; RESP 19; TEMP 36.6; O2SAT 98; BMI 31.0
--- NOTE | 2024-09-29 11:15 | PD.ORTHCLVIS ---
Vital signs 09/29/24 11:15 Height 1.5 m Height Method Stated Weight 69.91 kg Weight Measurement Method Standing Scale BMI 31.0 BP 125/74 Blood Pressure Source Automatic Cuff Blood Pressure Location Left Upper Arm Position Sitting Respiration 19 Pulse 95 Pulse Source Monitor Temp 97.8 F Temp Source Temporal Artery Scan Pulse Oximetry (%) 98 Oxygen Delivery Method Room Air Med/Allergies Allergies & Medications Allergies No Known Allergies Allergy (Verified 09/29/24 11:16) Medication Reconciliation naproxen 375 mg tablet 375 mg PO BID PRN pain 06/07/24 [History Confirmed 09/29/24] aspirin 81 mg tablet,delayed release 81 mg PO BID #60 tabs 08/17/24 [Rx Confirmed 09/29/24] doxycycline hyclate 100 mg tablet 100 mg PO BID #14 tabs 08/17/24 [Rx Confirmed 09/29/24] gabapentin 300 mg capsule 300 mg PO .qhs #30 caps 08/17/24 [Rx Confirmed 09/29/24] sennosides 8.6 mg-docusate sodium 50 mg tablet (Senna-S) 1 tab-cap PO QDAY #30 tabs 08/17/24 [Rx Confirmed 09/29/24] pantoprazole 40 mg tablet,delayed release 40 mg PO QDAY #20 tabs 08/20/24 [Rx Confirmed 09/29/24] acetaminophen 500 mg tablet (Acetaminophen Extra Strength) 1,000 mg (2 x 500 mg) PO Q6H PRN pain #90 tabs 08/31/24 [Rx Confirmed 09/29/24] oxycodone 5 mg tablet 5 mg PO Q6H PRN pain #28 tabs 08/31/24 [Rx Confirmed 09/29/24] gabapentin 300 mg capsule 300 mg PO .qhs #30 caps 09/15/24 [Rx Confirmed 09/29/24] Exam Exam Patient is in no acute distress and is cooperative with the examination today. Breathing is nonlabored. In no respiratory distress. Patient has no paraspinal tenderness. Spinal deformity cannot be appreciated. The gait of the patient is nonantalgic Bilateral extremities were evaluated and demonstrates sensation intact to light touch. Palpable pedal pulses are present. No significant edema is present. Bilateral knees were examined and the patient has full strength and range of motion.. The left hip was examined. Patient was able to flex to 90 degrees, adduct to 30 degrees, abduct to 40 degrees, internally rotate to 20 degrees, and externally rotate to 20 degrees. Patient has a negative logroll. Stinchfield is negative. The patient is nontender diffusely to touch. R hip incision is c/d/i. Leg lengths are equal Assessment and Plan Problem List (1) Avascular necrosis of bone of right hip: Status: Acute Plan: Patient is a 44-year-old female status post total hip replacement for avascular porosis. She is doing well. She has not started physical therapy yet. We will see her back in 4 weeks with new x-rays. She needs to start physical therapy. We are having problems with insurance getting it approved Office Procedures GNS Level of Care Nursing/Assessment Patient Status: Established Patient Nursing Assessment/Reassesment: Medication Reconciliation, Update PMH in EMR and Vital Signs Coordination of Care: Complex Care and Chronic Disease 1-5, Education Complex Pt/Fam, Consent,records obtained, informed consent, Results/Orders obtained and Staff clarify orders Special Needs: Language special needs Established Patient Charge Established Patient Point Assignment: 95 Established Patient Point Charge: EP Level 3 (80-115) MA Intake Visit Data Collection New Patient or Established: Established Patient (seen at [facility] within 3 years) Reason for Visit:: 6 WEEK POST OP [place] Seen by Clinical Staff ONLY (RN/MA): No Verbal consent obtained for Telemed visit?: No Switchman Supervisor Required: Yes PCP or OBGYN visit in last 3 months: Yes Hx Now: No Do You Feel Safe at Home: Yes Authorities Contacted: N/A Questionairres Past Medical History Past Medical History Have you ever been diagnosed with any of the following: Neurological Problems Seizures: No Cardiology Problems Congestive Heart Failure: No Respiratory Problems Chronic Obstructive Pulmonary Disease (COPD): No Smoking: No Smoking Exposure: No Genital/Urinary Problems Renal Disease: No Reproductive Problems Endometriosis: Yes Pelvic Inflammatory Disease: Yes Previous Pregnancies: Yes Musculoskeletal Problems Arthritis: Yes (RIGHT HIP) Endocrine Problems Diabetes Mellitus Type 1: No Diabetes Mellitus Type 2: No Blood Problems Anemia: Yes (RESOLVED) Other Problems Falls: No Blood Transfusions: No Blood Transfusion Reaction: No Anesthesia Reactions: No MRSA: No VRSA: No Chicken Pox: Yes Measles: Yes Clostridium Difficile: Yes Cancer: No Subjective Visit Visit for: follow up visit, post op #2 and hip Immunization / Flu Flu Vaccine in the Last 12 Months: No Flu Vaccine Exclusion Criteria: No Exclusion Criteria History of Present Illness Chief complaint: 6 WEEK POST OP [place] Patient is doing well status post total hip replacement. She has not started physical therapy due to insurance. She is doing fine Personal History Occupation: DISABLED Pain Pain level (0-10): 6 Pain quality: burning and tingling Associated signs & symptoms: numbness (THIGH) Ambulatory data Ambulatory device: walker Treatments Improvement with previous injections: No Improvement with PT: No Improvement with NSAIDS: no Review of Systems Review of Systems: All systems negative unless otherwise noted in HPI.
--- NOTE | 2024-09-29 11:20 | XR_ITS ---
Examination:Right hip AP, lateral, AP pelvis 3 views, right femur 2 views Technique: Hip AP lateral, AP pelvis, 3 views, right femur AP lateral 2 views Exam date and time:May 30, 2024 1228 hours INDICATIONS: Status post hip replacement 6 weeks ago. FINDINGS: Total right hip arthroplasty. Satisfactory alignment. Shaft of the femur intact IMPRESSION: Total right hip arthroplasty with satisfactory alignment.
== END 2024-09-29 11:35 | disposition home or self-care (01) ==
LOC: HODSRG 10:56
PROVIDERS: PCP Physician Assistant; Referring Provider Physician Assistant; Supervising Provider Orthopaedic Surgery Adult Reconstructive Orthopaedic Surgery; Visit Provider Orthopaedic Surgery Adult Reconstructive Orthopaedic Surgery
DX: M87.88 Other osteonecrosis, other site (principal); Z96.641 Presence of right artificial hip joint
CPT/HCPCS: 73502; 99213; G0463

== ENCOUNTER 2024-10-26 14:30 | Outpatient (RCR) | payer MEDICAID, SELFPAY ==
--- NOTE | 2024-09-30 09:02 | PT.OIERPT ---
PT OP Initial Eval Patient Information Outpatient Physical Therapy Treatment Date: 09/30/24 Visit Reasons: Post op RT hip Medical Diagnosis: [id number] right hip OA Treatment Dx #1: Right Hip Mobility Deficits Treatment Dx #2: Difficulty Walking Start of Care: 09/30/24 Date of Onset: 6 weeks ago Smoking Status Smoking Status: Never smoker Initial Assessment Subjective: Pt is a 44 y/o female s/p right THR ~ 6 weeks ago. Pt received 3 weeks of homehealth physical therapy. Pt still has pain (7/10) with activities. Pt has difficulty with standing, walking, chores, balance, self care, cooking, cleaning, stairs, and performing recreational activities. Objective: Right Hip AROM Flexion: 45 deg Abduction: 20 deg External Rotation: 10 deg Internal Rotation: 20 deg Extension: 10 deg Right Hip MMTs: grossly 3-/5 SLS: unable Gait Observation: step to pattern with FWW Assessment: Pt demonstrate right hip mobility and strength deficits s/p surgery leading to difficulty with ADLs. 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 1) Increase right hip AROM WFL in 12 wks to be able to perform chores 2) Increase right hip MMTs grossly to 4-/5 in 12 wks to be able to walk more than 30 mins 3) Decrease hip pain to 2/10 in 12 wks to be able to stand more than 30 mins 4) Increase SLS to 15 sec in 12 wks to be able to perform self care activities 5) Indep with HEP Treatment Plan 1) Manual Therapy 2) Therapeutic Activities 3) Therapeutic Exercises 4) Modalities (ice, heat) 5) Balance Training 6) Gait Training Frequency and Duration: 2 x wk for 12 wks Certification Dates: 09/30/24 to 12/31/24 Procedure Charges OP PT Eval Mod Complex 30 minutes: Yes
--- NOTE | 2024-10-04 15:52 | PT.ODAYNRPT ---
PT Outpatient Daily Note OP Daily Note Outpatient Physical Therapy Treatment Date: 10/04/24 Visit Reasons: Post op RT hip Subjective: Pt c/o R hip feeling numb. Objective: Please see flow sheet for ther ex list. Assessment: Pt ambulates with FWW demonstrates antalgic gait, worked on heel strike. Plan: Continue with pOC. Length of Time (minutes) of Treatment: 30 Minutes Procedure Charges Therapeutic Exercise 30 minutes: Yes
--- NOTE | 2024-10-06 15:49 | PT.ODAYNRPT ---
PT Outpatient Daily Note OP Daily Note Outpatient Physical Therapy Treatment Date: 10/06/24 Visit Reasons: Post op RT hip Subjective: pt reports she continues to use FWW because she has pain with WB in groin area. Objective: Please see flow sheet for ther ex list. Assessment: Worked on WB and weight shifting today, pt reports increase pain with increase WB on R LE. Plan: Continue with POC.. Length of Time (minutes) of Treatment: 30 Minutes Procedure Charges Therapeutic Exercise 30 minutes: Yes
--- NOTE | 2024-10-10 16:29 | PT.ODAYNRPT ---
PT Outpatient Daily Note OP Daily Note Outpatient Physical Therapy Treatment Date: 10/10/24 Visit Reasons: Post op RT hip Subjective: Pt notices she can tolerate a little more standing on RT hip when doing house hold chores and notices the pain she had in groin area is less. Objective: Please see flow sheet for ther ex list. 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 Plan: Continue with pOC. Length of Time (minutes) of Treatment: 30 Minutes Procedure Charges Therapeutic Exercise 30 minutes: Yes
--- NOTE | 2024-10-12 15:35 | PTNOTE_ITS ---
PT Outpatient Daily Note OP Daily Note Outpatient Physical Therapy Treatment Date: 10/12/24 Visit Reasons: Post op RT hip Subjective: Pt's hip stiff and ache in the front. Pt has been walking 45 mins- 1 hr daily due to surgeon asked her to walk alot but did not specify what a lot is. Pt also mentioned she walks around the house with the walker. Pt further wants to know if she can have intercourse with her partner. Objective: Please see flow chart for list of ther ex performed Assessment: Pt educated to decrease walking frequency to 3x weekly up to 20-30 mins due to hip replacement is still acute and require time to heal. Pt gave verbal understand. Pt also instructed to consult with surgeon regarding intercourse. Practice transitioning patient to a SPC, however, she is not ready due to increase forward pelvis rotation in swing. 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
--- NOTE | 2024-10-17 16:05 | PT.ODAYNRPT ---
PT Outpatient Daily Note OP Daily Note Outpatient Physical Therapy Treatment Date: 10/17/24 Visit Reasons: Post op RT hip Subjective: Pt reports hip pain is a little less, still has pain and discomfort with WB and during swing of R LE. Objective: Please see flow sheet for ther ex list. Assessment: Pt demonstrates improved stance phase during ambulation indicating progress. Plan: Continue with pOC. Length of Time (minutes) of Treatment: 30 Minutes Procedure Charges Therapeutic Exercise 30 minutes: Yes
--- NOTE | 2024-10-19 16:01 | PT.ODAYNRPT ---
PT Outpatient Daily Note OP Daily Note Outpatient Physical Therapy Treatment Date: 10/19/24 Visit Reasons: Post op RT hip Subjective: Pt reports hip is doing a little better but still gets pain in the front of the hip. Objective: Please see flow sheet for ther ex list. Assessment: Pt instructed on hip flexion, pt reports discomfort in groin area instructed to reduce range reducing discomfort. Plan: Continue with poC. Length of Time (minutes) of Treatment: 30 Minutes Procedure Charges Therapeutic Exercise 30 minutes: Yes
--- NOTE | 2024-10-24 15:06 | PT.ODAYNRPT ---
PT Outpatient Daily Note OP Daily Note Outpatient Physical Therapy Treatment Date: 10/24/24 Visit Reasons: Post op RT hip Subjective: Pt's hip is better. Pt has been walking around her house using a walking stick. Pt mentioned Dr Ruiz's office can give her a cane; she'll head to their office after therapy session Objective: Please see flow chart for list of ther ex performed Assessment: progress patient to a cane and demonstrate safely with safe sequence. Pt instructed to start using cane for ambulation. Pt gave verbal understanding and will follow up with Dr Ruiz's office for a cane. Plan: Continue with PT Length of Time (minutes) of Treatment: 30 Minutes Procedure Charges Therapeutic Exercise 30 minutes: Yes
--- NOTE | 2024-10-26 15:28 | PT.ODAYNRPT ---
PT Outpatient Daily Note OP Daily Note Outpatient Physical Therapy Treatment Date: 10/26/24 Visit Reasons: Post op RT hip Subjective: Pt ambulating with SPC, pt mentioned the pain in her groin has reduced. Objective: Please see flow sheet for ther ex list. Assessment: Pt demonstrates improved symptoms and now ambulating with SPC. Adjusted to appropraite heiht for pt use. Plan: Continue with pOC. Length of Time (minutes) of Treatment: 30 Minutes Procedure Charges Therapeutic Exercise 30 minutes: Yes
== END 2024-10-30 23:59 | disposition home or self-care (01) ==
LOC: CPTX 14:30
PROVIDERS: PCP Orthopaedic Surgery Adult Reconstructive Orthopaedic Surgery; Referring Provider Orthopaedic Surgery Adult Reconstructive Orthopaedic Surgery; Visit Provider Orthopaedic Surgery Adult Reconstructive Orthopaedic Surgery
DX: M25.551 Pain in right hip (principal); R26.2 Difficulty in walking, not elsewhere classified; Z96.641 Presence of right artificial hip joint; M16.11 Unilateral primary osteoarthritis, right hip
CPT/HCPCS: 97110; 97162

== ENCOUNTER 2024-11-09 08:30 | Outpatient (RCR) | payer MEDICAID, SELFPAY ==
--- NOTE | 2024-11-01 09:03 | PT.ODAYNRPT ---
PT Outpatient Daily Note OP Daily Note Outpatient Physical Therapy Treatment Date: 11/01/24 Visit Reasons: RT HIP POST OP Subjective: Pt reports progress but slow, mentioned that groin pain is still present but less intense. Pt mentioned that she has difficult time bending over to tie shoes and appl socks. Objective: Please see flow sheet for ther ex list. Assessment: Pt instructed on interventions to work on hip flexibility to work toward pt being able to perform hip flexion to don/doff foot wear. Plan: Continue with pOC. Length of Time (minutes) of Treatment: 30 Minutes Procedure Charges Therapeutic Exercise 30 minutes: Yes
--- NOTE | 2024-11-03 09:26 | PT.ODAYNRPT ---
PT Outpatient Daily Note OP Daily Note Outpatient Physical Therapy Treatment Date: 11/03/24 Visit Reasons: RT HIP POST OP Subjective: Pt's hip is feeling better. Pt still has difficulty putting on lotion in a standing position and curious if it'll improve in time. Objective: Please see flow chart for list of ther ex performed Assessment: instructed patient to put on lotion especially with the right LE in a sitting position to decrease pressure on the hip implant and prevent future back pain. Pt gave verbal understanding. Pt exhibit increase trunk sway with side step exercise using YTB; improved with HERNANDES and cues to decrease stride Plan: Continue with PT Length of Time (minutes) of Treatment: 30 Minutes Procedure Charges Therapeutic Exercise 30 minutes: Yes
--- NOTE | 2024-11-07 09:22 | PT.ODAYNRPT ---
PT Outpatient Daily Note <MONIE Harmon - Last Filed: 11/07/24 09:30> OP Daily Note Outpatient Physical Therapy Treatment Date: 11/07/24 Visit Reasons: RT HIP POST OP Subjective: Pt states she is noticing progress with Rt hip and explains it feels sore this morning. Objective: See F/S for therex Assessment: Pt tolerated therex well with no reports of pain to Rt hip; required minimum verbal cues to correct foot and hip alignment w/ resisted lateral steps. Pt confirms she is compliant with HEP and demo'd understanding of the importance to protect hip implant and avoid hip extension. Plan: Continue with POC Length of Time (minutes) of Treatment: 30 Minutes <Felipe Rosado PT - Last Filed: 11/07/24 09:40> OP Daily Note Assessment: Pt tolerated therex well with no reports of pain to Rt hip; required minimum verbal cues to correct foot and hip alignment w/ resisted lateral steps. Pt confirms she is compliant with HEP and demo'd understanding of the importance to protect hip implant and avoid hip extension. Procedure Charges <MONIE Harmon - Last Filed: 11/07/24 09:30> Therapeutic Exercise 30 minutes: Yes
--- NOTE | 2024-11-09 09:03 | PT.ODAYNRPT ---
PT Outpatient Daily Note OP Daily Note Outpatient Physical Therapy Treatment Date: 11/09/24 Visit Reasons: RT HIP POST OP Subjective: Pt reports R hip has progressed and notices her walking has improved. Pt mentioned that she still gets occasional hip pain and pin in the groin area, continues to use SPC for ambulation. Pt has a follow up with surgeon in December. Objective: Please see flow sheet for ther ex list. Assessment: Pt continues to ambulate with antalgic gait, working on normalizing gait and improving funritonal strength. Plan: Pt has completed PT visits at this time. Pt would benefit from additional PT visits to continue working towards goal initially set for PT. Length of Time (minutes) of Treatment: 30 Minutes Procedure Charges Therapeutic Exercise 30 minutes: Yes
== END 2024-11-29 23:59 | disposition home or self-care (01) ==
LOC: CPTX 08:30
PROVIDERS: PCP Orthopaedic Surgery Adult Reconstructive Orthopaedic Surgery; Referring Provider Orthopaedic Surgery Adult Reconstructive Orthopaedic Surgery; Visit Provider Orthopaedic Surgery Adult Reconstructive Orthopaedic Surgery
DX: M25.551 Pain in right hip (principal); R26.2 Difficulty in walking, not elsewhere classified; R26.89 Other abnormalities of gait and mobility; Z96.641 Presence of right artificial hip joint
CPT/HCPCS: 97110

== ENCOUNTER → 2024-12-26 | Outpatient (CLI) | payer MEDICAID, SELFPAY ==
--- NOTE | 2024-12-26 13:30 | XR_ITS ---
Examination: Diagnostic digital mammography, unilateral, right Computer aided detection 3-D breast Tomosynthesis, unilateral Date and time of exam: December 26, 2024, 1327 hours INDICATIONS: Mammogram 11/04/2023 11-12 o'clock focal asymmetry right breast anterior depth Technique: Nonmagnified MLO, CC views of the right breast have been obtained, reconstructed from 3-D Tomosynthesis images. R2 computer aided detection program utilized for evaluation of suspicious masses and/or abnormal calcifications. 3-D Tomosynthesis images obtained. Findings: The breast is heterogeneously dense, which may obscure small masses Focal asymmetry is more prominent in the upper right breast on the spot compression MLO view, measuring 38 mm Impression: BI-RADS category 0: Incomplete: Need additional imaging evaluation More prominent focal asymmetry upper right breast on the spot compression MLO view, recommend repeat right breast sonography following
== END | disposition home or self-care (01) ==
PROVIDERS: PCP Physician Assistant; Referring Provider Physician Assistant; Visit Provider Physician Assistant
DX: R92.8 Other abnormal and inconclusive findings on diagnostic imaging of breast (principal); N64.89 Other specified disorders of breast
CPT/HCPCS: 77061; 77065; G0279

== ENCOUNTER 2024-12-27 11:30 | Outpatient (RCR) | payer MEDICAID, SELFPAY ==
--- NOTE | 2024-11-30 13:38 | PT.ODS1RPT ---
PT OP Progress/Discharge Note Date of Service: 11/30/24 Progress Note/DC Note Progress Note/Discharge Note: Progress Note Patient Information Visit Reasons: RT hip Femur Medical Diagnosis: z96.642; right hip OA Treatment Dx #1: Right Hip Mobility Deficits Treatment Dx #2: Difficulty Walking Service Continue Service or Discharge: Continue Service Certification Date Certification Dates: 11/30/24 to 03/02/25 Status Subjective: Pt's hip is feeling much better. Pt has been able to walk, stand, and perform light ADLs with less limitation. Pt still has limitation with prolonged activities, balance, uneven surfaces, stairs, and squatting activities. Objective: Right Hip AROM Flexion: 90 deg Abduction: 45 deg IR and ERL WFL Extension: 15 deg Right Hip MMTs: grossly 3+/5 SLS: 5 sec Assessment: Pt is progressing with right hip AROM and strength allowing her to start light ADLs, ambulate, and perform chores with less limitation. Pt has not met set goals in therapy and will continue to benefit from physical therapy to work on improving strength, endurance, and flexibility; thank you for your referrals. Plan: Continue with PT/POC and add 6 sessions (2 x wk for 3 wks) Procedure Charges Therapeutic Exercise 30 minutes: Yes
--- NOTE | 2024-12-07 13:44 | PT.ODAYNRPT ---
PT Outpatient Daily Note OP Daily Note Outpatient Physical Therapy Treatment Date: 12/07/24 Visit Reasons: RT hip Femur Subjective: Pt reports R hip is doing better, walks short distance without AD. Objective: Please see flow sheet for ther ex list. Assessment: Pt demonstrates improved gait, added light resistance to hip extension pt tolerated well. Plan: Continue with pOC. Length of Time (minutes) of Treatment: 30 Minutes Procedure Charges Therapeutic Exercise 30 minutes: Yes
--- NOTE | 2024-12-14 10:11 | PT.ODAYNRPT ---
PT Outpatient Daily Note OP Daily Note Outpatient Physical Therapy Treatment Date: 12/14/24 Visit Reasons: RT hip Femur Subjective: Pt reports R hip and leg has been really painful these last 2 days. Pt shared that she notices when the weather is cold she has more pain, c/o back and R LE pain. Objective: Please see flow sheet for ther ex list. Assessment: Pt ambulates poor hip extension on R LE during gait, near end of session and after ther ex hip extension improved. Plan: Continue with poC. Length of Time (minutes) of Treatment: 30 Minutes Procedure Charges Therapeutic Exercise 30 minutes: Yes
--- NOTE | 2024-12-16 10:07 | PT.ODAYNRPT ---
PT Outpatient Daily Note OP Daily Note Outpatient Physical Therapy Treatment Date: 12/16/24 Visit Reasons: RT hip Femur Subjective: Pt's hip is much better. It feels stiff when it's cold outside. Pt has a follow up appt in Dec. Objective: Please see flow chart for list of ther ex performed Assessment: progressing with hip mobility and overall strength. Pt demonstrate good form with step up and lateral step up exercises Plan: Continue with PT Length of Time (minutes) of Treatment: 30 Minutes Procedure Charges Therapeutic Exercise 30 minutes: Yes
--- NOTE | 2024-12-21 09:52 | PT.ODAYNRPT ---
PT Outpatient Daily Note OP Daily Note Outpatient Physical Therapy Treatment Date: 12/21/24 Visit Reasons: RT hip Femur Subjective: Pt's hip feel feels better and stronger. Pt does not have any concerns. Objective: Please see flow chart for list of ther ex performed Assessment: tolerate exercises with minimal pain Plan: Continue with PT Length of Time (minutes) of Treatment: 30 Minutes Procedure Charges Therapeutic Exercise 30 minutes: Yes
--- NOTE | 2024-12-23 11:46 | PT.ODAYNRPT ---
PT Outpatient Daily Note OP Daily Note Outpatient Physical Therapy Treatment Date: 12/23/24 Visit Reasons: RT hip Femur Subjective: Pt's hip feels good. No new concerns to report. Objective: Please see flow chart for list of ther ex performed Assessment: tolerate exercises with minimal pain Plan: Continue with PT Length of Time (minutes) of Treatment: 30 Minutes Procedure Charges Therapeutic Exercise 30 minutes: Yes
--- NOTE | 2024-12-27 14:05 | PT.ODAYNRPT ---
PT Outpatient Daily Note OP Daily Note Outpatient Physical Therapy Treatment Date: 12/27/24 Visit Reasons: RT hip Femur Subjective: Pt reports hip is doing better and notices her walking has improved. Objective: Please see flow sheet for ther ex list. Assessment: Pt reports difficulty with bending to tie shoes, focus on stretches and exercises for functional reaching. Plan: Continue with pOC. Length of Time (minutes) of Treatment: 30 Minutes Procedure Charges Therapeutic Exercise 30 minutes: Yes
== END 2024-12-30 23:59 | disposition home or self-care (01) ==
LOC: CPTX 11:30
PROVIDERS: PCP Orthopaedic Surgery Adult Reconstructive Orthopaedic Surgery; Referring Provider Orthopaedic Surgery Adult Reconstructive Orthopaedic Surgery; Visit Provider Orthopaedic Surgery Adult Reconstructive Orthopaedic Surgery
DX: M25.551 Pain in right hip (principal); R26.2 Difficulty in walking, not elsewhere classified; R26.89 Other abnormalities of gait and mobility; Z96.642 Presence of left artificial hip joint
CPT/HCPCS: 97110

== ENCOUNTER 2025-01-03 10:04 | Outpatient (AMB) | payer MEDICAID, SELFPAY ==
[2025-01-03 10:34] VITALS: BP 104/69; PULSE 73; RESP 19; TEMP 36.4; O2SAT 98; BMI 69.4
--- NOTE | 2025-01-03 10:34 | ORTHONT_ITS ---
Vital signs 01/03/25 10:34 Height 1.5 m Height Method Measured Weight 156.2 kg Weight Measurement Method Standing Scale BMI 69.4 BP 104/69 Blood Pressure Source Automatic Cuff Blood Pressure Location Right Upper Arm Position Sitting Respiration 19 Pulse 73 Pulse Source Monitor Temp 97.6 F Temp Source Temporal Artery Scan Pulse Oximetry (%) 98 Oxygen Delivery Method Room Air Med/Allergies Allergies & Medications Allergies No Known Allergies Allergy (Verified 01/03/25 10:35) Medication Reconciliation naproxen 375 mg tablet 375 mg PO BID PRN pain 06/07/24 [History Confirmed 01/03/25] aspirin 81 mg tablet,delayed release 81 mg PO BID #60 tabs 08/17/24 [Rx Confirmed 01/03/25] doxycycline hyclate 100 mg tablet 100 mg PO BID #14 tabs 08/17/24 [Rx Confirmed 01/03/25] gabapentin 300 mg capsule 300 mg PO .qhs #30 caps 08/17/24 [Rx Confirmed 01/03/25] sennosides 8.6 mg-docusate sodium 50 mg tablet (Senna-S) 1 tab-cap PO QDAY #30 tabs 08/17/24 [Rx Confirmed 01/03/25] pantoprazole 40 mg tablet,delayed release 40 mg PO QDAY #20 tabs 08/20/24 [Rx Confirmed 01/03/25] acetaminophen 500 mg tablet (Acetaminophen Extra Strength) 1,000 mg (2 x 500 mg) PO Q6H PRN pain #90 tabs 08/31/24 [Rx Confirmed 01/03/25] oxycodone 5 mg tablet 5 mg PO Q6H PRN pain #28 tabs 08/31/24 [Rx Confirmed 01/03/25] gabapentin 300 mg capsule 300 mg PO .qhs #30 caps 10/25/24 [Rx Confirmed 01/03/25] Exam Exam Patient is in no acute distress and is cooperative with the examination today. Breathing is nonlabored. In no respiratory distress. Patient has no paraspinal tenderness. Spinal deformity cannot be appreciated. The gait of the patient is nonantalgic Bilateral extremities were evaluated and demonstrates sensation intact to light touch. Palpable pedal pulses are present. No significant edema is present. Bilateral knees were examined and the patient has full strength and range of motion.. The left hip was examined. Patient was able to flex to 90 degrees, adduct to 30 degrees, abduct to 40 degrees, internally rotate to 20 degrees, and externally rotate to 20 degrees. Patient has a negative logroll. Stinchfield is negative. The patient is nontender diffusely to touch. R hip incision is c/d/i. Leg lengths are equal Assessment and Plan Problem List (1) Avascular necrosis of bone of right hip: Status: Acute Plan: Patient is a 44-year-old female status post total hip replacement for avascular necrosis. She is doing well. She has not started physical therapy yet. She did not get new xrays but we would like to see them. She can return back to work. Office Procedures GNS Level of Care Nursing/Assessment Patient Status: Established Patient Nursing Assessment/Reassesment: Medication Reconciliation, Update PMH in EMR and Vital Signs Coordination of Care: Complex Care and Chronic Disease 1-5, Education Complex Pt/Fam, Consent,records obtained, informed consent, Lab and Imaging orders, Results/Orders obtained and Staff clarify orders Special Needs: Language special needs Established Patient Charge Established Patient Point Assignment: 110 Established Patient Point Charge: EP Level 3 (80-115) MA Intake Visit Data Collection New Patient or Established: Established Patient (seen at [facility] within 3 years) Reason for Visit:: [place] F/U Seen by Clinical Staff ONLY (RN/MA): No Verbal consent obtained for Telemed visit?: No Recreation Therapy Aide Required: Yes PCP or OBGYN visit in last 3 months: Yes Hx Now: No Do You Feel Safe at Home: Yes Authorities Contacted: N/A Questionairres Past Medical History Past Medical History Have you ever been diagnosed with any of the following: Neurological Problems Seizures: No Cardiology Problems Congestive Heart Failure: No Respiratory Problems Chronic Obstructive Pulmonary Disease (COPD): No Smoking: No Smoking Exposure: No Genital/Urinary Problems Renal Disease: No Reproductive Problems Endometriosis: Yes Pelvic Inflammatory Disease: Yes Previous Pregnancies: Yes Musculoskeletal Problems Arthritis: Yes (RIGHT HIP) Endocrine Problems Diabetes Mellitus Type 1: No Diabetes Mellitus Type 2: No Blood Problems Anemia: Yes (RESOLVED) Other Problems Falls: No Blood Transfusions: No Blood Transfusion Reaction: No Anesthesia Reactions: No MRSA: No VRSA: No Chicken Pox: Yes Measles: Yes Clostridium Difficile: Yes Cancer: No Subjective Visit Visit for: follow up visit, post op #2 and hip Immunization / Flu Flu Vaccine in the Last 12 Months: No Flu Vaccine Exclusion Criteria: No Exclusion Criteria History of Present Illness Chief complaint: 6 WEEK POST OP [place] Patient is doing well status post total hip replacement. She is using a cane occasionally. She is doing fine and walks without any limp Personal History Occupation: DISABLED Pain Pain level (0-10): 6 Pain quality: burning and tingling Associated signs & symptoms: numbness (THIGH) Ambulatory data Ambulatory device: walker Treatments Improvement with previous injections: No Improvement with PT: No Improvement with NSAIDS: no Review of Systems Review of Systems: All systems negative unless otherwise noted in HPI.
--- NOTE | 2025-01-03 10:36 | XR_ITS ---
Examination: Right hip AP, lateral, AP pelvis 3 views Technique: Hip AP lateral, AP pelvis, 3 views Exam date and time: January 03, 2025, 1104 hours INDICATIONS: Status post right hip surgery 5 months ago. FINDINGS: Total right hip arthroplasty. Satisfactory alignment Old area of bone density above the greater trochanter Mild to moderate narrowing left hip joint IMPRESSION: Total right hip arthroplasty with satisfactory alignment.
== END 2025-01-03 10:41 | disposition home or self-care (01) ==
LOC: HODSRG 10:04
PROVIDERS: PCP Physician Assistant; Referring Provider Physician Assistant; Supervising Provider Orthopaedic Surgery Adult Reconstructive Orthopaedic Surgery; Visit Provider Orthopaedic Surgery Adult Reconstructive Orthopaedic Surgery
DX: Z96.641 Presence of right artificial hip joint (principal)
CPT/HCPCS: 73502; 99213; G0463

== ENCOUNTER 2025-01-24 08:00 | Outpatient (RCR) | payer MEDICAID, SELFPAY ==
--- NOTE | 2025-01-02 12:03 | PT.ODAYNRPT ---
PT Outpatient Daily Note OP Daily Note Outpatient Physical Therapy Treatment Date: 01/02/25 Visit Reasons: Rt hip femur Subjective: Pt's hip feels much better. Pt follows up with surgeon soon. Pt is unsure if she can resume work yet due to still having difficulty with prolonged standing. Objective: Please see flow chart for list of ther ex performed Assessment: demonstrate improve hip stability with ambulate leading to less antalgic gait. Pt advised to follow up with surgeon and report back consultation. Pt gave verbal consent and understanding Plan: Continue with PT Length of Time (minutes) of Treatment: 30 Minutes Procedure Charges Therapeutic Exercise 30 minutes: Yes
--- NOTE | 2025-01-04 13:18 | PT.ODAYNRPT ---
PT Outpatient Daily Note OP Daily Note Outpatient Physical Therapy Treatment Date: 01/04/25 Visit Reasons: Rt hip femur Subjective: Pt reports hip has been feeling better, notices walking pattern improving. Objective: Please see flow sheet for ther ex list. Assessment: Pt demonstrates limited hip extension during gait, performed light stretches. Plan: Continue with poC. Length of Time (minutes) of Treatment: 30 Minutes Procedure Charges Therapeutic Exercise 30 minutes: Yes
--- NOTE | 2025-01-12 10:36 | PT.ODAYNRPT ---
PT Outpatient Daily Note OP Daily Note Outpatient Physical Therapy Treatment Date: 01/12/25 Visit Reasons: Rt hip femur Subjective: Pt reports R hip is progressing but notices she still has pain with Objective: Please see flow sheet for ther ex list. Assessment: Pt demonstrates limited hip extension during gait, worked on gait and improving hip flexibility. Plan: Continue with poC. Length of Time (minutes) of Treatment: 30 Minutes Procedure Charges Therapeutic Exercise 30 minutes: Yes
--- NOTE | 2025-01-18 11:18 | PT.ODAYNRPT ---
PT Outpatient Daily Note OP Daily Note Outpatient Physical Therapy Treatment Date: 01/18/25 Visit Reasons: Rt hip femur Subjective: Pt reports R hip is doing better but still notices some stiffness. Objective: Please see flow sheet for ther ex list. Assessment: Pt instructed on stretches, pt continues to demonstrate limited hip extension during gait. Plan: Continue with poC. Length of Time (minutes) of Treatment: 30 Minutes Procedure Charges Therapeutic Exercise 30 minutes: Yes
--- NOTE | 2025-01-24 08:36 | PT.ODS1RPT ---
PT OP Progress/Discharge Note Date of Service: 01/24/26 Progress Note/DC Note Progress Note/Discharge Note: DC Note Patient Information Visit Reasons: Rt hip femur Medical Diagnosis: [id number]; Right Hip OA Treatment Dx #1: Right Hip Mobility Deficits Service Discharge Date: 01/24/25 Status Subjective: Pt is walking, standing, perform chores, self care, and balance with minimal limitation. Pt notice putting on her shoes still difficulty but is getting easier. At this time Pt feels comfortable being release from care with exercises to continue at home. Objective: Right Hip AROM: all motions are WFL Right Hip MMTs: grossly 4-/5 SLS: 15 sec Assessment: Pt demosntrate functional right hip mobility and strength allowing her to resume ADLs, ambulate, perform chores, and recreational activities with less limitation. Pt will no longer benefit from physical therapy due to meeting set goals in therapy and completing authorized sessions. Pt was instructed on HEP last session and educated to continue exercises to maintain overall mobility. Pt performed all exercises safely, thank you for your referrals. Plan: D/C home with HEP and follow up with MD FULLER Procedure Charges Therapeutic Exercise 30 minutes: Yes
== END 2025-01-29 23:59 | disposition home or self-care (01) ==
LOC: CPTX 08:00
PROVIDERS: PCP Orthopaedic Surgery Adult Reconstructive Orthopaedic Surgery; Referring Provider Orthopaedic Surgery Adult Reconstructive Orthopaedic Surgery; Visit Provider Orthopaedic Surgery Adult Reconstructive Orthopaedic Surgery
DX: Z47.1 Aftercare following joint replacement surgery (principal); Z96.641 Presence of right artificial hip joint; M25.551 Pain in right hip; R26.2 Difficulty in walking, not elsewhere classified; R26.89 Other abnormalities of gait and mobility
CPT/HCPCS: 97110